=== PATIENT | female | born 1940 | race Caucasian/White ===

== ENCOUNTER 2018-01-10 05:46 | Day surgery (SDC) | payer MEDICARE, OTHER ==
[~2018-01-10] VITALS: Ht 160 cm; Wt 77.7 kg
[2018-01-10] MEDS ORDERED: BENZOCAINE 20% 50 MCG/SPRAY 57 GM TP ONE (05:47)
[2018-01-10] MEDS ORDERED: LIDOCAINE HCL 2% 30 ML JELLY TP ONE (05:47)
[2018-01-10] MEDS ORDERED: LIDOCAINE HCL 4% 50 ML SOLUTION TP ONE (05:47)
[2018-01-10] MEDS ORDERED: SODIUM CHLORIDE 0.9% 1,000 ML IV ONE ×2 (06:07→07:00)
[2018-01-10] MEDS ORDERED: LOSA50TA37 PO (06:40)
[2018-01-10] MEDS ORDERED: ASPI-1182 PO (06:40)
[2018-01-10] MEDS ORDERED: OMEP20 PO (06:40)
[2018-01-10] MEDS ORDERED: AMLO-511 PO (06:40)
[2018-01-10] MEDS ORDERED: METF850T2 PO (06:40)
[2018-01-10 07:07] LABS: GLUCOMETER DEV NAME(LOC) SDS 5; GLUCOSE,POINT OF CARE 176 MG/DL (70-110)
[2018-01-10] MEDS ORDERED: FentaNYL CITRATE-PF 100 MCG/2 ML VIAL ONE (08:03)
[2018-01-10] MEDS ORDERED: MIDAZOLAM HCL 2 MG/2 ML VIAL ONE (08:03)
[2018-01-10] MEDS ORDERED: MethylPREDNISolone SOD SUCC 125 MG/2 ML VIAL IVP ONE (08:45)
[2018-01-10] MEDS ORDERED: OXYGEN THERAPY IH SCH (20:00)
== END 2018-01-10 09:40 | disposition home or self-care (01) ==
LOC: SURGERY 05:46
PROVIDERS: ATTEND Internal Medicine Critical Care Medicine
DX: J38.4 Edema of larynx (principal); B37.0 Candidal stomatitis; J84.111 Idiopathic interstitial pneumonia, not otherwise specified; E11.9 Type 2 diabetes mellitus without complications; I10 Essential (primary) hypertension; E78.00 Pure hypercholesterolemia, unspecified; Z88.3 Allergy status to other anti-infective agents; Z88.0 Allergy status to penicillin; Z72.89 Other problems related to lifestyle; Z98.49 Cataract extraction status, unspecified eye; Z90.710 Acquired absence of both cervix and uterus; Z79.82 Long term (current) use of aspirin; Z79.84 Long term (current) use of oral hypoglycemic drugs; Z79.899 Other long term (current) drug therapy
CPT/HCPCS: 31623; 31624; 71045; 82962; 87015; 87070; 87205; 87220; 88108; 88184; 88185; 88312; 88313; J2250; J2930; J3010; J7030